=== PATIENT | male | born 1970 | race African-American/Black ===

== ENCOUNTER 2023-01-05 10:23 | Outpatient (CLI) | payer OTHER | END 2023-01-05 10:24 | disposition home or self-care (01) | LOC: CSHRAD 10:23 | PROVIDERS: ATTEND Student in an Organized Health Care Education/Training Program | DX: M25.552 Pain in left hip (principal); R07.9 Chest pain, unspecified; M16.12 Unilateral primary osteoarthritis, left hip | CPT/HCPCS: 71046 ==